=== PATIENT | male | born 1980 | race Hispanic/Latino ===

== ENCOUNTER 2022-12-03 16:34 | Inpatient (IN) | payer SELFPAY ==
[~2022-12-03] VITALS: Ht 175.3 cm; Wt 136.5 kg
[2022-12-03 19:01] LABS: BASOPHILS % (AUTO) 0.3 % (0.0-5.0); HEMATOCRIT 46.4 % (42-54); LYMPHOCYTES % (AUTO) 28.6 % (21.0-51.0); MEAN CORPUSCULAR HEMOGLOBIN 28.1 pg (27.0-33.0); MEAN CORPUSCULAR HGB CONC 33.2 g/dL (32.0-36.0); MEAN CORPUSCULAR VOLUME 84.7 fL (79-99); NEUTROPHILS % (AUTO) 61.8 % (40.0-77.0); PLATELET COUNT (AUTO) 341 K/uL (130-400); RED BLOOD CELL COUNT(AUTO) 5.48 MIL/uL (4.50-6.20); RED CELL DISTRIBUTION WIDTH 14.5 % (11.0-15.5); WHITE BLOOD COUNT (AUTO) 8.6 K/uL (4.8-10.8)
[2022-12-03 19:16] LABS: CREATININE 1.2 mg/dL (0.5-1.5)
[2022-12-03 19:16] LABS: APPEARANCE,URINE CLOUDY (CLEAR); BILIRUBIN,URINE NEGATIVE (NEGATIVE); COLOR,URINE YELLOW (YELLOW); GLUCOSE, URINE (UA) NEGATIVE (NEGATIVE); KETONES,URINE NEGATIVE (NEGATIVE); LEUKOCYTE ESTERASE ,URINE NEGATIVE Leu/uL (NEGATIVE); NITRATE,URINE NEGATIVE (NEGATIVE); OCCULT BLOOD,URINE NEGATIVE (NEGATIVE); PH,URINE 5.5 (5.0-8.0); PROTEIN,URINE 30 mg/dL (NEGATIVE); UROBILINOGEN,URINE 3 mg/dL (0.2-1.0)
[2022-12-03 19:21] LABS: BACTERIA,URINE FEW /HPF (None Seen); MUCUS,URINE MANY LPF (None Seen); SQUAMOUS EPITHELIAL CELL,UR MOD /HPF (0-2)
[2022-12-03 19:24] LABS: AMPHET/METH SCREEN,URINE NEGATIVE (NEGATIVE); BARBITURATE SCREEN, URINE NEGATIVE (NEGATIVE); BENZODIAZEPINES SCREEN,URINE POSITIVE (NEGATIVE); CANNABINOID SCREEN,URINE POSITIVE (NEGATIVE); COCAINE SCREEN,URINE POSITIVE (NEGATIVE); OPIATE SCREEN,URINE NEGATIVE (NEGATIVE); PHENCYCLIDINE SCREEN,URINE NEGATIVE (NEGATIVE)
[2022-12-03 19:39] LABS: ALBUMIN 3.7 g/dL (3.5-5.0); TOTAL PROTEIN, SERUM 7.8 g/dL (6.0-8.3)
[2022-12-03] MEDS ORDERED: POTASSIUM BICARB/CIT AC 25 MEQ TABLET.EFF PO ONE (20:00)
[2022-12-03] MEDS ORDERED: [UNRECOGNIZED DRUG - OTHER] IV ONE (20:00)
[2022-12-03] MEDS ORDERED: LACTULOSE 20 GM/30 ML UDCUP PO PRN (20:30)
[2022-12-03] MEDS ORDERED: MAGNESIUM 2GM PREMIX 50ML 50 ML IV PRN (20:30)
[2022-12-03] MEDS ORDERED: ONDANSETRON 4MG INJ IV PRN (20:30)
[2022-12-03] MEDS ORDERED: ACETAMINOPHEN 325 MG TAB PO PRN ×2 (20:30)
[2022-12-03] MEDS ORDERED: POTASSIUM CHLORIDE 10MEQ/100ML 100 ML IV PRN (20:30)
[2022-12-03 22:30] VITALS: BP 111/63
[2022-12-03] MEDS: POTASSIUM CHLORIDE 10% ELIXIR 20 MEQ/15 ML UDCUP PO PRN (23:04)
[2022-12-03] MEDS: FAMOTIDINE 20MG TAB PO SCH (23:04)
[2022-12-03] MEDS: 0.9%NACL 1000ML 1,000 ML IV SCH (23:06)
[2022-12-04] MEDS: 0.9%NACL 1000ML 1,000 ML IV SCH ×4 (00:30→22:25)
[2022-12-04 03:57] VITALS: BP 126/56
[2022-12-04 05:38] LABS: BASOPHILS % (AUTO) 0.4 % (0.0-5.0); EOSINOPHILS % (AUTO) 3.1 % (0.0-8.0); HEMATOCRIT 38.7 % (42-54); LYMPHOCYTES % (AUTO) 34.8 % (21.0-51.0); MEAN CORPUSCULAR HEMOGLOBIN 28.4 pg (27.0-33.0); MEAN CORPUSCULAR HGB CONC 32.6 g/dL (32.0-36.0); MEAN CORPUSCULAR VOLUME 87.4 fL (79-99); MONOCYTES % (AUTO) 5.7 % (3.0-13.0); NEUTROPHILS % (AUTO) 55.7 % (40.0-77.0); PLATELET COUNT (AUTO) 244 K/uL (130-400); RED BLOOD CELL COUNT(AUTO) 4.43 MIL/uL (4.50-6.20); RED CELL DISTRIBUTION WIDTH 14.6 % (11.0-15.5); WHITE BLOOD COUNT (AUTO) 6.9 K/uL (4.8-10.8)
[2022-12-04 06:15] LABS: POTASSIUM 3.3 mmol/L (3.5-5.1)
[2022-12-04] MEDS: POTASSIUM CHLORIDE 10% ELIXIR 20 MEQ/15 ML UDCUP PO PRN ×2 (06:40→08:30)
[2022-12-04] MEDS ORDERED: METOPROLOL TARTRATE 1 MG/ML 5ML VIAL IV PRN (07:30)
[2022-12-04 07:46] LABS: HEMOGLOBIN A1C 5.6 % (4.0-6.0)
[2022-12-04 07:50] LABS: CRP QUANTITATIVE 5.5 mg/L (0.00-9.0); MAGNESIUM 2.1 mg/dL (1.80-2.40)
[2022-12-04 08:00] VITALS: BP 125/77
[2022-12-04] MEDS: FAMOTIDINE 20MG TAB PO SCH ×2 (08:30→20:45)
[2022-12-04] MEDS: KCL 20 MEQ ERTAB PO PRN ×2 (12:34→20:45)
[2022-12-04 12:45] VITALS: BP 127/77
[2022-12-04 16:07] VITALS: BP 126/78
[2022-12-04 20:21] VITALS: BP 132/74
[2022-12-04 23:16] VITALS: BP 154/83
[2022-12-05] MEDS: 0.9%NACL 1000ML 1,000 ML IV SCH ×3 (04:14→18:33)
[2022-12-05 05:26] VITALS: BP 137/91
[2022-12-05 06:04] LABS: HEMATOCRIT 40.6 % (42-54); MEAN CORPUSCULAR HEMOGLOBIN 28.4 pg (27.0-33.0); MEAN CORPUSCULAR HGB CONC 32.8 g/dL (32.0-36.0); MEAN CORPUSCULAR VOLUME 86.8 fL (79-99); RED BLOOD CELL COUNT(AUTO) 4.68 MIL/uL (4.50-6.20); RED CELL DISTRIBUTION WIDTH 14.4 % (11.0-15.5)
[2022-12-05 06:46] LABS: CREATININE 0.9 mg/dL (0.5-1.5); MAGNESIUM 1.8 mg/dL (1.80-2.40); POTASSIUM 3.8 mmol/L (3.5-5.1)
[2022-12-05] MEDS ORDERED: FAMOTIDINE 20MG VIAL IV ONE (07:42)
[2022-12-05 08:00] VITALS: BP 148/95
[2022-12-05] MEDS ORDERED: 0.9%NACL 1000ML 1,000 ML IV ONE (08:00)
[2022-12-05] MEDS: FAMOTIDINE 20MG TAB PO SCH ×2 (09:34→20:06)
[2022-12-05 12:00] VITALS: BP 139/63
[2022-12-05 16:04] VITALS: BP 130/70
[2022-12-05] MEDS ORDERED: ENOXAPARIN SODIUM 40 MG/0.4 ML SYRINGE SQ ONE (17:00)
[2022-12-05] MEDS ORDERED: ENOXAPARIN SODIUM 40 MG/0.4 ML SYRINGE SQ SCH (17:30)
[2022-12-05 19:44] VITALS: BP 151/90
[2022-12-05 23:14] VITALS: BP 138/82
[2022-12-06] MEDS: 0.9%NACL 1000ML 1,000 ML IV SCH ×4 (02:58→20:29)
[2022-12-06 04:20] VITALS: BP 138/77
[2022-12-06 05:52] LABS: HEMATOCRIT 40.6 % (42-54); MEAN CORPUSCULAR HEMOGLOBIN 28.4 pg (27.0-33.0); MEAN CORPUSCULAR HGB CONC 33.3 g/dL (32.0-36.0); MEAN CORPUSCULAR VOLUME 85.5 fL (79-99); RED BLOOD CELL COUNT(AUTO) 4.75 MIL/uL (4.50-6.20); RED CELL DISTRIBUTION WIDTH 14.1 % (11.0-15.5); WHITE BLOOD COUNT (AUTO) 7.5 K/uL (4.8-10.8)
[2022-12-06 05:59] LABS: CREATININE 0.7 mg/dL (0.5-1.5); POTASSIUM 3.7 mmol/L (3.5-5.1)
[2022-12-06 08:00] VITALS: BP 151/95
[2022-12-06] MEDS: CEFTRIAXONE 1G VIAL IVPB SCH (08:45)
[2022-12-06] MEDS: ENOXAPARIN SODIUM 40 MG/0.4 ML SYRINGE SQ SCH (08:46)
[2022-12-06] MEDS: KCL 20 MEQ ERTAB PO PRN ×2 (08:46→14:27)
[2022-12-06] MEDS: FAMOTIDINE 20MG TAB PO SCH ×2 (08:46→20:29)
[2022-12-06 09:04] LABS: APPEARANCE,URINE CLEAR (CLEAR); BILIRUBIN,URINE NEGATIVE (NEGATIVE); COLOR,URINE COLORLESS (YELLOW); GLUCOSE, URINE (UA) NEGATIVE (NEGATIVE); KETONES,URINE NEGATIVE (NEGATIVE); LEUKOCYTE ESTERASE ,URINE NEGATIVE Leu/uL (NEGATIVE); NITRATE,URINE NEGATIVE (NEGATIVE); OCCULT BLOOD,URINE NEGATIVE (NEGATIVE); PROTEIN,URINE NEGATIVE (NEGATIVE); UROBILINOGEN,URINE 0.2 mg/dL (0.2-1.0)
[2022-12-06 12:02] VITALS: BP 146/90
[2022-12-06 16:00] VITALS: BP 140/86
[2022-12-06 19:50] VITALS: BP 140/90
[2022-12-06 23:50] VITALS: BP 130/86
[2022-12-07 03:45] VITALS: BP 138/78
[2022-12-07 04:18] LABS: HEMATOCRIT 38.9 % (42-54); MEAN CORPUSCULAR HEMOGLOBIN 28.9 pg (27.0-33.0); MEAN CORPUSCULAR HGB CONC 34.2 g/dL (32.0-36.0); MEAN CORPUSCULAR VOLUME 84.4 fL (79-99); RED BLOOD CELL COUNT(AUTO) 4.61 MIL/uL (4.50-6.20); RED CELL DISTRIBUTION WIDTH 13.9 % (11.0-15.5); WHITE BLOOD COUNT (AUTO) 8.5 K/uL (4.8-10.8)
[2022-12-07 04:58] LABS: CREATININE 0.7 mg/dL (0.5-1.5); POTASSIUM 3.5 mmol/L (3.5-5.1)
[2022-12-07] MEDS: 0.9%NACL 1000ML 1,000 ML IV SCH (05:44)
[2022-12-07 08:00] VITALS: BP 147/86
[2022-12-07] MEDS: CEFTRIAXONE 1G VIAL IVPB SCH (08:26)
[2022-12-07] MEDS: ENOXAPARIN SODIUM 40 MG/0.4 ML SYRINGE SQ SCH (08:27)
[2022-12-07] MEDS: FAMOTIDINE 20MG TAB PO SCH (08:27)
== END 2022-12-07 10:30 | DRG 557 ==
LOC: EDH 16:34 → UNDOADMIN 16:35 → EDHIP 16:35 → 3CH 22:04
PROVIDERS: ADMIT Hospitalist; ATTEND Hospitalist
DX: M62.82 Rhabdomyolysis (principal); N17.0 Acute kidney failure with tubular necrosis; Z68.41 Body mass index [BMI] 40.0-44.9, adult; E86.0 Dehydration; F12.10 Cannabis abuse, uncomplicated; E87.6 Hypokalemia; E66.01 Morbid (severe) obesity due to excess calories; F17.200 Nicotine dependence, unspecified, uncomplicated
CPT/HCPCS: 36415; 71045; 80048; 80053; 80305; 81001; 81003; 82550; 83036; 83605; 83735; 84145; 84484; 85025; 85027; 85651; 86140; 87088; 87635; 87804; 87880; 93005; G0378; J0696; J1650; J2405; J3490; J7030